=== PATIENT | female | born 1985 | race Caucasian/White ===

== ENCOUNTER 2025-04-02 13:00 | Outpatient (AMB) | payer OTHER, SELFPAY ==
--- NOTE | 2025-04-02 13:02 | MHC.PC.OV ---
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 Allergies No Known Allergies Allergy (Verified 04/02/25 13:25) Medication List - Last Reconciled 04/02/25 by Corie Mackay, TIE PULLER- escitalopram oxalate (Lexapro) 10 mg PO DAILY Tobacco use date assessed: 04/02/25 Dental Screening Dental Screen Date: 04/02/25 Did you have a dental visit in the last 12 months?: Yes Did you have a dental problem in the last 6 months where you did not have access to dental care?: No Was dental information given to patient?: Patient has dentist HPI HPI Comments History of Present Illness Details 39 y/o F with MICHAEL, MDD Social: 2 children, 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 - Reports bloating and constipation since starting Lexapro in September 2023. - Symptom description includes alternating abdominal distension resembling six months and relief by morning. - No similar symptoms on prior antidepressants or pre-Lexapro.(celexa/zoloft) - Not on control; menstruation began day prior. - Weight up by 15 pounds since starting Lexapro - happy w/ this. - takes at night as makes her tired during the day. GI sx are worse in the evening. - Mood is great on this med. Not in counseling. Denies SI/HI - No pelvic pain or pressure reported. - Symptoms of fatigue, possibly linked to low blood pressure. Family History - Father with hypertension and high cholesterol. - Mother with anxiety, depression, thyroid disorder, and Parkinson's disease. - Paternal grandfather with heart disease. - Paternal grandmother with COPD. - Maternal grandmother with lung cancer. - Maternal grandfather with unspecified blood cancer. - One brother with substance use and other with mental health disorder. 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 - Does not drink alcohol. - Has two children. - Not on any control. Health Maintenance - Pap smear last conducted three years ago, consistent with current health guidelines. - Tetanus vaccination updated following of the youngest child, approximately 4 years ago. - Not currently in counseling due to self-perceived effectiveness of current medication regimen. - Periodic health screenings planned via upcoming lab tests to assess blood counts, kidney and liver function, and diabetes screening. Review of Systems - Gastrointestinal: Reports bloating and constipation. Denies abdominal pain or food-related symptom exacerbation. - Endocrine: Denies recent changes except weight gain. - Neurological/Psychiatric: Reports mood stabilization but medication-related fatigue. - Genitourinary: Denies pelvic pain; reports regular menstrual cycle. - Respiratory: Denies symptoms. - Cardiovascular: Denies symptoms. Physical Exam General: Well developed, well nourished, in no acute distress. Appears stated age. Head: Normocephalic, atraumatic. Eyes: Pupils are equal, round and reactive to light and accommodation. Conjunctivae are clear. Vision grossly normal. Ears: TMs clear AU, EACS WNL. A little congestion noted R TM, likely due to allergies. Nose: Patent, without discharge. Some clear drainage noted, likely due to allergies. Neck: Supple, no adenopathy or thyromegaly. No pain on palpation. Breast: Edu on SBE Lungs: Clear to auscultation bilaterally. No rales, rhonchi or wheeze noted. Good air flow in all mclean. Heart: Regular rate and rhythm. No murmurs, click, rubs or gallops are noted. Abdomen: Bowel sounds present in all quadrants. The abdomen is soft, nontender, with no masses or organomegaly noted. No hernias are noted. : Deferred. Reviewed recommendations for routine FREELANCE PATTERNMAKER. Pulses: Peripheral pulses are equal and palpable bilaterally. Extremities: No clubbing, cyanosis nor edema is noted. Neurologic: Gait and station normal. Cranial Nerves 2-12 intact. Motor strength grossly symmetrical and intact. No sensory loss. Balance normal. Skin: No rashes, ulcers, or lesions noted. Turgor is good. Skin color is good. Hair and nails are without abnormalities. Psych: Normal eye contact, affect and mood appropriate, and normal interactions. Patient is alert and appropriate to context. Results Pending Discussion Notes I discussed with the patient that Lexapro could be contributing to her gastrointestinal symptoms, considering the timeline of onset. However, other causes must be ruled out with [facility] [place] and comprehensive lab work. The implications of potential Lexapro side effects were reviewed, as well as the possibility of altering antidepressant treatment if tests are clear. [employer] genetic testing for medication response optimization was introduced as a potential future step. We will reconvene for follow-up in 8 to 12 weeks, reviewing test results and considering safe antidepressant alternatives if Lexapro is the cause. Assessment and Plan 1. Gastrointestinal symptoms potentially due to Lexapro - Ultrasound and full lab workup ordered. - Review Lexapro's effects post-test results. 2. Anxiety and Depression - Continue Lexapro. - Re-evaluate post-test findings. 3. Fatigue - Monitor with labs. - Evaluate treatment options if anemia is present. Patient Instructions - Await call for ultrasound appointment. - Complete lab tests today. - Continue taking Lexapro; do not miss doses. - Monitor symptoms; report any changes. - Return for follow-up as scheduled - about 8 weeks. - Contact office if symptoms worsen. Consent Patient was informed and verbally consented to the use of an ambient scribe for clinic note documentation during this visit. An additional 30 minutes was spent addressing the problem(s) noted at todays visit. This includes time spent before the visit reviewing the chart, time spent during the visit, and time spent after the visit on documentation [facility] Medical History (Updated 04/02/25 @ 16:57 by Corie Mackay, [facility]) Anxiety and depression Scoliosis Surgical History (Updated 04/02/25 @ 13:11 by Connie Ramos MA) No pertinent past surgical history Family History (Updated 04/02/25 @ 13:15 by Connie Ramos MA) Paternal Grandmother COPD (chronic obstructive pulmonary disease) Father HTN (hypertension) High cholesterol Mother Thyroid disorder Mental health disorder Paternal Grandfather Cardiovascular disease Maternal Grandmother Lung cancer Maternal Grandfather Cancer Brother Mental health disorder Social History (Updated 04/02/25 @ 13:11 by Connie Ramos MA) Household Members: Spouse and Children Both parents involved: No Caregiver staying overnight: No Housing: House Are you a primary childcare director to a significant other at home: Yes Do you presently have visiting nurse or other home services: No 75 years or older and lives alone: No Alcohol intake: current Alcohol intake frequency: a few times a month Patient Tobacco Use Status: Never used Tobacco e-Cigarette/Vaping Use: Never Used Second Hand Smoke Exposure: No Current occupational status: employed 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 1. Little interest or pleasure in doing things: not at all 2. Feeling down, depressed, or hopeless: not at all 3. Trouble falling or staying asleep, or sleeping too much: not at all 4. Feeling tired or having little energy: not at all 5. Poor appetite or overeating: not at all 6. Feeling bad about yourself - or that you are a failure or have let yourself or your family down: not at all 7. Trouble concentrating on things, such as reading the newspaper or watching television: more than half the days 8. Moving or speaking so slowly that other people could have noticed. Or the opposite - being so fidgety or restless that you have been moving around a lot more than usual: not at all 9. Thoughts that you would be better off or of hurting yourself in some way: not at all Total score: 2 Depression Screening Interpretation: Negative Depression Screening Done: Yes 08206 - PHQ-9 Billing: Yes Source: Developed by Drs. Filipe Wray, Stephanie Saavedra, Manas Coley and colleagues, with an educational karl from [employer]. Thrive Questionnaire Date Thrive assessed: 04/02/25 I am a: Patient What is your living situation today?: I have a steady place to live Within the past 12 months, did the food you bought not last and you didn't have the money to get more?: Never true Within the past 12 months, did you worry whether your food would run out before you got money to buy more?: Never true Do you have trouble paying for medicines?: No Do you have trouble getting transportation to medical appointments?: No Do you have trouble paying your heating and electricity bill?: No Do you have trouble taking care of your child, family member or friend?: No Do you have trouble with day-to-day activities such as bathing, preparing meals, shopping, managing finances, etc.?: No Are you currently unemployed and looking for a job?: No Are you interested in more education?: No Please select the resources that you would like help with: None Currently or been in a relationship where the following occur: No concerns reported THRIVE Score: 0 AUDIT C Alcohol Use Questionnaire (AUDIT-C) 1. How often do you have a drink containing alcohol?: Monthly or less 2. How many drinks containing alcohol do you have on a typical day when you are drinking?: 1 or 2 3. How often do you have six or more drinks on one occasion?: Never Total Score: 1 Score Reviewed/Action Taken: Yes MICHAEL-7 AMB Questionnaire MICHAEL-7 Date MICHAEL - 7 assessed: 04/02/25 Feeling nervous, anxious, or on edge: 0 = Not at all Not being able to stop or control worryin = Not at all Worrying too much about different things: 0 = Not at all Trouble relaxin = Not at all Being so restless that it is hard to sit still: 0 = Not at all Becoming easily annoyed or irritable: 0 = Not at all Feeling afraid as if something awful might happen: 0 = Not at all Total MICHAEL-7 score (0-4 normal; 5-9 mild; 10-14 moderate; 15-21 severe): 0 Source: Developed by Drs. Filipe Wray, Stephanie Saavedra, Manas Coley and colleagues, with an educational karl from [employer]. MICHAEL-7 Assessment Billing MICHAEL-7 Assessment Tool: MICHAEL-7 Assessment 13528 Physical exam (Primary Care) Vital Signs: Last Vital Signs Temp 97.6 F 04/02/25 13:06 Pulse 60 04/02/25 13:06 Resp 12 04/02/25 13:06 BP 97/66 04/02/25 13:06 Pulse Ox 99 04/02/25 13:06 Oxygen Delivery Method Room Air 04/02/25 13:06 BMI result Body Mass Index 22.7 Tobacco/Smoking Status: Tobacco use Status Tobacco use date assessed 04/02/25 04/02/25 13:15 Patient Tobacco Use Status Never used Tobacco 04/02/25 13:15 e-Cigarette/Vaping Use Never Used 04/02/25 13:15 PHQ-9: PHQ-9 Score PHQ-9: Total score 2 04/02/25 13:25 Depression Screening Interpretation: Negative Thrive Assessment: Date of Thrive Assessment Date Thrive assessed 04/02/25 04/02/25 13:15 Currently or been in a relationship where the following occur: No concerns reported Coding Level of Care Code New Pt Level 3 (27222) New Pt Prev Care 18-39yr(66723 Diagnoses Encounter to establish care Z76.89 MICHAEL (generalized anxiety disorder) F41.1 Mild episode of recurrent major depressive disorder F33.0 Major depression episode severity: mild Abdominal bloating R14.0 Chronic fatigue R53.82 Fatigue type: chronic, unspecified Encounter for general adult medical examination with abnormal findings Z00.01 Additional Codes MICHAEL-7 Assessment Billing - MICHAEL-7 Assessment Tool: MICHAEL-7 Assessment 83748 ([id number]) PHQ-9 - 55156 - PHQ-9 Billing: Yes ([id number]) Assessment & Plan Assessment & Plan (1) Encounter to establish care: Code(s): Z76.89 - Persons encountering health services in other specified circumstances (2) MICHAEL (generalized anxiety disorder): Code(s): F41.1 - Generalized anxiety disorder Category: Medical (3) MDD (major depressive disorder), recurrent episode: Code(s): F33.9 - Major depressive disorder, recurrent, unspecified Category: Medical Qualifiers: Major depression episode severity: mild Qualified Code(s): F33.0 - Major depressive disorder, recurrent, mild (4) Abdominal bloating: Code(s): R14.0 - Abdominal distension (gaseous) Category: Medical (5) Fatigue: Code(s): R53.83 - Other fatigue Category: Medical Qualifiers: Fatigue type: chronic, unspecified Qualified Code(s): R53.82 - Chronic fatigue, unspecified (6) Encounter for general adult medical examination with abnormal findings: Onset Date: ~04/02/25 Code(s): Z00.01 - Encounter for general adult medical examination with abnormal findings Category: Medical Plan . Orders: Orders Complete Blood Count no Diff Today R14.0 - Abdominal distension (gaseous) TSH reflex Free T4 Today R14.0 - Abdominal distension (gaseous) US pelvic and transvaginal Today R14.0 - Abdominal distension (gaseous) Comprehensive Met. Panel Today R14.0 - Abdominal distension (gaseous) Ferritin Today R14.0 - Abdominal distension (gaseous) Hemoglobin A1c Today R14.0 - Abdominal distension (gaseous) IRON PROFILE Today R14.0 - Abdominal distension (gaseous) Lipid Panel Today R14.0 - Abdominal distension (gaseous) Microalbumin, Random (w Creat) Today R14.0 - Abdominal distension (gaseous) Vitamin B12 and Folate Today R14.0 - Abdominal distension (gaseous) Vitamin D 25-OH Total Today R14.0 - Abdominal distension (gaseous) UA CC w/rflx Micro + Cult Today R14.0 - Abdominal distension (gaseous) Medications: New escitalopram oxalate (Lexapro) 10 mg PO DAILY 90 tabs 0RF Patient Instructions: Walk-In Care (Urgent Care): We Make it Easy Walk-in for urgent medical issues such as: ? Seasonal Allergies ? Insect Bites ? Cough ? Diarrhea ? Acute Asthma Attacks ? Back, Knee or Joint Pain ? Ear Infection ? Fever without a Rash ? Headaches ? Nausea ? [place] Eye, Rash or Skin Irritation ? Sore Throat ? Sports Physicals ? Vomiting Most insurances are accepted. Patients do not need to be part of the [facility] to seek care at the walk-in clinic. Locations [facility] , [place] [address] ? [phone] [facility] Walk-In Care in [place] provides services to ages 18 and over. Open Sunday-Sunday: 8 a.m. to 5 p.m. and Sunday: 9 a.m. to 3 p.m.* *Hours may vary due to staffing availability. To confirm Walk-In Care hours in [place], please call [phone]. [address] [place] [address] ? [phone] [facility] Walk-In Care in [place] provides services to ages 12 and over. Open Sunday-Sunday: 8 a.m. to 5 p.m. Hours may vary due to staffing availability. To confirm Walk-In Care hours in [place], please call [phone]. LABORATORY SERVICES: [facility] Lab ? Primary Location [address] [facility] Sunday through Sunday 6:00 AM ? 5:00 PM Sunday 7:00 AM ? 11:00 AM* [phone] The [facility] Lab is centrally located near the front entrance of the [facility] for easy outpatient access. Convenient parking is provided for outpatients. *Hours may vary due to staffing availability. To confirm Laboratory hours for any location, please call [phone]. Offsite Location For your convenience, we offer offsite laboratory draw stations at the following locations: [address] [place] [address] ? [address], [address] Sunday through Sunday 7:30 AM ? 1:00 PM* [phone] *Hours may vary due to staffing availability. To confirm Laboratory hours for any location, please call [phone]. [place] ? [address] Sunday through Sunday 6:00 AM ? 3:30 PM* Sunday 6:30 AM ? 3 PM* [phone] *Hours may vary due to staffing availability. To confirm Laboratory hours for any location, please call [phone] [place] [address] Sunday through Sunday 7:30 AM ? 4:00 PM* [phone] *Hours may vary due to staffing availability. To confirm Laboratory hours for any location, please call [phone] [place] [address] Sunday through 9:00 AM ? 4:00 PM* *Hours may vary due to staffing availability. To confirm Laboratory hours for any location, please call [phone]. Appointments are not necessary. Walk-ins are welcome. Like all the departments throughout the [facility], our Lab undergoes frequent reviews to ensure the quality and accuracy of test results, and our staff takes special pride in its status as a nationally accredited facility. Patient Portal: ONE PATIENT. ONE RECORD. BETTER CARE. [facility] has a fully integrated, cutting-edge mobile electronic health information system that has revolutionized the way we care for our patients and manage our organization. This system improves communication and coordination enabling us to provide safe, higher-quality care, and an overall positive experience for staff and patients. Our first priority, as always, is to deliver the highest quality care possible. The system is running in the background supporting that priority. This portal is for all [facility] services and practices. If you are experiencing any technical difficulties with enrolling or logging into the Patient Portal please complete the [facility] Patient Portal Technical Support Form. [facility] now offers a new secure on-line interactive tool for patients to review their health information ? ?Patient Portal. This interactive web portal will enable patients and their families to take an active role in their care by providing easy, secure access to their health information via the internet. The Patient Portal provides patients with instant access to their health information, including laboratory results, medications, allergies, demographic information, visit history, and more. In addition to managing their own care, parents and health care proxies with authorized consent will appreciate the ability to access the records of those individuals for whom they provide care. Please note: if you wish to gain access (Proxy) to another patient?s portal, you will be required to come to the Medical Records Department in person at [facility]. Both the patient giving proxy access and the proxy will need to provide photo identification and complete the appropriate authorization. The Patient Portal also allows track their appointments online. The [facility] Patient Portal also saves patients time by allowing them to submit updates to their demographic and contact information prior to their visits. Portal email notifications will also alert patients to any new activity on their portal, such as test results and new appointments. In order to initially enroll in the [facility] Patient Portal, you will need to enter some required information including the following: your [facility] Medical Record number your personal home email address name date of Please note: In order to enroll in the [facility] Patient Portal, we need to have your email address on file in your electronic medical record. ?The email address needs to be specific for one person (yourself) in order for your Portal enrollment to be successful. ?You can update your email address in person with our Registration staff when you are registering for a hospital visit. ?Otherwise, you will need to come to the Health Information Management (Medical Records) Department at [facility]. ?We are open from Sunday ? Sunday from 7:30 a.m. ? 4:30 p.m. ?You will be required to present a photo id. Once you have successfully enrolled in the Patient Portal, you will receive a one-time user id and password for the Portal, sent to your email address. ?This will allow you to log into the Patient Portal within 99 hrs and reset your own logon id and password, and define personal security questions. ?Once your permanent login and password have been set, you can log into the [facility] Patient Portal at any time via the blue button above or from the Portal Logon button on any page of the [facility] website. [facility] encourage all of our patients to enroll in Patient Portal as it presents a valuable opportunity for patients and their families to actively participate in their care and stay healthy Welcome to [facility]. ?We look forward to working with you. Health screenings for women You should visit your health care provider from time to time, even if you are healthy. The purpose of these visits is to: Screen for medical issues Assess your risk for future medical problems Encourage a healthy lifestyle Update vaccinations and other preventive care services Help you get to know your provider in case of an illness Information Even if you feel fine, you should still see your provider for regular checkups. These visits can help you avoid problems in the future. For example, the only way to find out if you have high blood pressure is to have it checked regularly. High blood sugar and high cholesterol levels also may not have any symptoms in the early stages. A simple blood test can check for these conditions. There are specific times when you should see your provider or receive specific health screenings. The [place] Preventive Services Task Force publishes a list of recommended screenings. Below are screening guidelines for women ages 18 to 39. BLOOD PRESSURE SCREENING Your blood pressure should be checked at least once every 3 to 5 years if: Your blood pressure is in the normal range (top number less than 120 mm Hg and bottom number less than 80 mm Hg) You don't have risk factors for high blood pressure Ask your provider if you need your blood pressure checked more often if: The top number is 120 to 129 mm Hg or the bottom number is 70 to 79 mm Hg You have diabetes, heart disease, kidney problems, are overweight, or have certain other health conditions You have a first-degree relative with high blood pressure You are Black You had high blood pressure during a If the top number is 130 mm Hg or greater or the bottom number is 80 mm Hg or greater, this is considered stage 1 hypertension. Schedule an appointment with your provider to learn how you can reduce your blood pressure. Watch for blood pressure screenings in your area. Ask your provider if you can stop in to have your blood pressure checked. BREAST CANCER SCREENING Experts do not agree about the benefits of breast self-exams in finding breast cancer or saving lives. Talk to your provider about what is best for you. A screening mammogram is not recommended for most women under age 40. Your provider may discuss and recommend mammograms, MRI scans, or ultrasounds if you have an increased risk for breast cancer, such as: A mother or sister who had breast cancer at a young age (most often starting screening earlier than the age the close relative was diagnosed) You carry a high-risk genetic marker CERVICAL CANCER SCREENING Cervical cancer screening should start at age 21 years unless your provider advises otherwise. After the first test: Women ages 21 through 29 should have a Pap test every 3 years. Exoprts do not agree on whether HPV testing is recommended for this age group. Women ages 30 through 65 should be screened with either a Pap test every 3 years or the HPV test every 5 years or both tests every 5 years (called cotesting ). Women who have been treated for precancer (cervical dysplasia) should continue to have Pap tests for 20 years after treatment or until age 65, whichever is longer. If you have had your uterus and cervix removed (total hysterectomy), and you have not been diagnosed with cervical cancer or precancer (high grade cervical neoplasia), you do not need cervical cancer screening. CHOLESTEROL SCREENING Cholesterol screening should begin at: Age 45 for women with no known risk factors for coronary heart disease Age 20 for women with known risk factors for coronary heart disease Repeat cholesterol screening should take place: Every 5 years for women with normal cholesterol levels More often if changes occur in lifestyle (including weight gain and diet) More often if you have diabetes, heart disease, kidney problems, or certain other conditions DIABETES SCREENING You should be screened for diabetes starting at age 35 and then repeated every 3 years if you have no risk factors for diabetes. Screening may need to start earlier and be repeated more often if you have other risk factors for diabetes, such as: You have a first degree relative with diabetes. You are overweight or have obesity. You have high blood pressure, prediabetes, or a history of heart disease. Screening for diabetes should be done if you are planning to become and you are overweight and have other risk factors such as high blood pressure. DENTAL EXAM Go to the dentist once or twice every year for an exam and cleaning. Your dentist will evaluate if you need more frequent visits. EYE EXAM Have an eye exam every 5 to 10 years before age 40. If you have vision problems, have an eye exam every 2 years or more often if recommended by your provider. You should have an eye exam that includes an examination of your retina (back of your eye) at least every year if you have diabetes. IMMUNIZATIONS Commonly needed vaccines include: Flu shot: get one every year. COVID-19 vaccine: ask your provider what is best for you. Tetanus-diphtheria and acellular pertussis (Tdap) vaccine: have one at or after age 19 as one of your tetanus-diphtheria vaccines if you did not receive it as an adolescent. Tetanus-diphtheria: have a booster (or Tdap) every 10 years. Varicella vaccine: receive 2 doses if you never had chickenpox or the varicella vaccine. Hepatitis B vaccine: receive 2, 3, or 4 doses, depending on your exact circumstances. Measles, mumps, and rubella (MMR) vaccine: receive 1 to 2 doses if you are not already immune to MMR. Your provider can tell you if you are immune. Ask your provider about the human papillomavirus (HPV) vaccine if: You have not received the HPV vaccine in the past You have not completed the full vaccine series (you should catch up on this shot) Ask your provider if you should receive other immunizations if you have certain health problems that increase your risk for some diseases such as pneumonia. INFECTIOUS DISEASE SCREENING Women who are sexually active should be screened for chlamydia and gonorrhea up until age 25. Women 25 years and older should be screened for chlamydia and gonorrhea if at high risk. Screening for hepatitis C: All adults ages 18 to 79 should get a one-time test for hepatitis C. people should be screened at every . Screening for human immunodeficiency virus (HIV): All people ages 15 to 65 should get a one-time test for HIV. Depending on your lifestyle and medical history, you may also need to be screened for infections such as syphilis and HIV, as well as other infections. PHYSICAL EXAM All adults should visit their provider from time to time, even if they are healthy. The purpose of these visits is to: Screen for disease Assess your risk of future medical problems Encourage a healthy lifestyle Update your vaccinations and other preventive care services Maintain a relationship with a provider in case of an illness Your height, weight, and BMI should be checked at every exam. During your exam, your provider may ask you about: Depression and anxiety Diet and exercise Alcohol and tobacco use Safety issues, such as using seat belts, smoke detectors, and intimate partner violence Your medicines and risk for interactions SKIN SELF-EXAM Your provider may check your skin for signs of skin cancer, especially if you're at high risk, such as if you: Have had skin cancer before Have close relatives with skin cancer Have a weakened immune system OTHER SCREENING Talk with your provider about colon cancer screening if you have a strong family history of colon cancer or polyps, or if you have had inflammatory bowel disease or polyps yourself. Routine bone density screening of women under 40 is not recommended.
[2025-04-02 13:06] VITALS: BP 97/66; PULSE 60; RESP 12; TEMP 36.4; O2SAT 99; BMI 22.7
--- OUTSIDE RECORDS SUMMARY | 2025-04-02 15:06 | XMS_ITS | Clinical Summary ---
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 Active cephalexin (KEFLEX) 250 MG/5ML suspensionIndic ations:Acute cystitis with hematuria Take 10 mL twice daily x 7 days 140 mL 11/25/2024 Active Active Problems Problem Noted Date Diagnosed Date Social anxiety disorder 02/25/2014 Idiopathic scoliosis and kyphoscoliosis 06/21/20 09 Immunizations Immunization Administration Dates Next Due DTP 11/29/1992, 1,09/21/1988,1987,1987 DTaP / HiB / IPV 07/22/1991 HPV Quadrivalent 06/21/2009 Hep B, Adolescent or Pediatric 01/19/2000,1998,08/11/1999 Influenza Inactivated/Split Preservative Free IM 10/19/2020,07/25/2016 Influenza, Quadrivalent (FLU ARIX, AFLURIA, FLULAVAL, FLUZONE) Preservative Free IM 09/17/2022,09/17/2021 MMR 09/28/1997,12/25/1988 OPV 11/29/1992, 1,09/21/1988,1987,1987 Tdap 06/21/2009 Social History Tobacco Use Types Packs/Day Years Used Date Smoking Tobacco: Never Smokeless Tobacco: Never Tobacco Cessation:Counseling Given: Not Answered Alcohol Use Standard Drinks/Week Comments Not Currently 0 (1 standard drink = 0.6 oz pur e alcohol) Comments Unknown Sex and Gender Information Value Date Recorded Sex Assigned at Not on file Legal Sex Female 6:36 PM EST Gender Identity Not on file Sexual Orientation Not on file Last Filed Vital Signs Vital Sign Reading Time Taken Comments Blood Pressure 88/58 11/25/2024 12:53 PM EST Pulse 56 11/25/2024 12:53 PM EST Temperature 36.8 ??C (98.2 ??F) 11/25/2024 12:[address] Respiratory Rate 16 11/25/2024 12:53 PM EST Oxygen Saturation 98% 11/25/2024 12:53 PM EST Inhaled Oxygen Concentration - - Weight 55.3 kg (122 lb) 11/25/2024 12:53 PM EST Height 157.5 cm (5' 2 ) 11/25/2024 12:53 PM EST Body Mass Index 22.31 11/25/2024 12:53 PM EST Plan of Treatment Health Maintenance Due Date Last Done Comments Hepatitis C Virus Screening 1987 HIV Screening 2000 Pap Smear (Ages 21-65) 2008 HPV Vaccines (2 - 3-dose series) 07/19/2009 06/21/2009 DTaP/Tdap/Td Vaccines (7 - Td or Tdap) 06/21/2019 06/21/2009, 11/29/1992, 07/29/1991, Additional history exists COVID-19 Vaccine ( season) 2024 07/24/2021, 06/26/2021 Influenza Vaccine 05/22/2025 09/17/2022, , 10/19/2020, Additional history exists Hepatitis B Vaccines Completed 01/19/2000, 10/06/1999, 08/11/1999 Pneumococcal Vaccine: Pediatric (0-5 Years) and At-Risk Patients (6 to 49 Years) Aged Out No longer eligible based on patient's age to complete this topic Insurance [employer] 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
== END 2025-04-02 13:52 | disposition home or self-care (01) ==
LOC: HO.HMCFM 13:01
PROVIDERS: PCP Nurse Practitioner Family; Visit Provider Nurse Practitioner Family
DX: Z00.01 Encounter for general adult medical examination with abnormal findings (principal); F41.1 Generalized anxiety disorder; F33.0 Major depressive disorder, recurrent, mild; R14.0 Abdominal distension (gaseous); R53.82 Chronic fatigue, unspecified; Z76.89 Persons encountering health services in other specified circumstances

== ENCOUNTER → 2025-04-02 13:00 | Outpatient (BNVA) | payer OTHER, SELFPAY | PROVIDERS: PCP Nurse Practitioner Family; Visit Provider Nurse Practitioner Family ==

== ENCOUNTER 2025-04-02 13:43 | Outpatient (REF) | payer OTHER, SELFPAY ==
[2025-04-02 17:39] LABS: Hematocrit 35.7 % (37.0-47.0); Mean Corpuscular HGB Conc 33.6 g/dl (31.0-35.0); Mean Corpuscular Hemoglobin 31.5 pg (27.0-33.0); Mean Corpuscular Volume 93.7 fL (80.0-98.0); Mean Platelet Volume 11.4 fL (9.4-12.3); Platelet Count 220 X10*3/uL (160-400); Red Blood Count 3.81 X10*6/uL (4.20-5.50); Red Cell Distribution Width 11.7 % (11.0-16.0); White Blood Count 6.5 X10*3/uL (4.8-10.8)
[2025-04-02 17:42] LABS: Estimated Average Glucose 97 mg/dL; Total Hemoglobin (HGBA1C) 3120.8054 umol/L
[2025-04-02 17:45] LABS: Appearance Urine Clear; Color Urine Dark Yellow; Glucose Urine UA Negative (Negative); Leukocyte Esterase Urine Negative (Negative); Nitrite Urine Negative (Negative); Specific Gravity - Urine 1.025 (1.005-1.025); UMIC TRIGGER UACC YES; Urine Blood Small (1+) (Negative); Urine Ketones Trace mg/dL (Negative); Urine Protein Negative (Neg-Trace)
[2025-04-02 17:52] LABS: Alanine Aminotransferase 19 U/L (0-31); Albumin Level 4.3 g/dL (3.5-5.0); Alkaline Phosphatase 57 U/L (39-117); Anion Gap 10 (12-20); Aspartate Amino Transferase 22 U/L (5-31); Bilirubin Total 0.6 mg/dL (0.0-1.0); Blood Urea Nitrogen 8 mg/dL (9-16); Calcium 8.7 mg/dL (8.4-10.2); Carbon Dioxide 27 mmol/L (22-29); Chloride 108 mmol/L (96-108); Cholesterol 168 mg/dL (<200); Estimated Glomerular Filt Rate > 60; Glucose Random 82 mg/dL (60-115); HDL Cholesterol 54 mg/dL (>40); Iron 91 mcg/dL (30-160); LDL Cholesterol Calculated 97 mg/dL (<100); Percent Iron Saturation 30 % (15-50); Potassium 3.6 mmol/L (3.3-5.1); Sodium 141 mmol/L (135-145); Total Iron Binding Capacity 299 mcg/dL (228-428); Total Protein 6.8 g/dL (6.5-8.0); Triglycerides 87 mg/dL (<150); Unsaturated Iron Binding 208 ug/dL
[2025-04-02 18:04] LABS: Creatinine Urine 237.34 mg/dL; Microalbum/Creatinine Ratio Ur 4.6 ug/mg cr (<30)
[2025-04-02 18:13] LABS: Ferritin 41 ng/mL (10-122); TSH reflex Free T4 1.71 uIU/mL (0.32-4.0); Vitamin D 25-OH Total 36.9 ng/mL (>30)
[2025-04-02 18:21] LABS: Bacteria Urine None Seen (None Seen); Hyaline Casts Urine 0-2 /LPF (0-2); WBC Urine 0-5 /HPF (0-5)
[2025-04-02 18:23] LABS: Folate 12.2 ng/mL (> or = 4.0); Vitamin B12 596 pg/mL (200-900)
== END 2025-04-02 13:44 | disposition home or self-care (01) ==
LOC: HO.WFDLDS 13:43
PROVIDERS: Visit Provider Nurse Practitioner Family
DX: Z00.01 Encounter for general adult medical examination with abnormal findings (principal); Z76.89 Persons encountering health services in other specified circumstances; F41.1 Generalized anxiety disorder; F33.0 Major depressive disorder, recurrent, mild; R14.0 Abdominal distension (gaseous); R53.82 Chronic fatigue, unspecified; Z13.1 Encounter for screening for diabetes mellitus; Z13.31 Encounter for screening for depression
CPT/HCPCS: 36415; 80053; 80061; 81001; 82043; 82306; 82570; 82607; 82728; 82746; 83036; 83540; 84443; 85027; 96127

== ENCOUNTER 2025-05-08 15:09 | Outpatient (REF) | payer OTHER, SELFPAY ==
--- NOTE | ~2025-05-08 | US_ITS ---
EXAMINATION: US PELVIS TRANSABDOMINAL AND TRANSVAGINAL HISTORY: R14.0 - Abdominal distension (gaseous) COMPARISON: There are no prior studies available for comparison. TECHNIQUE: Transabdominal and endovaginal real-time 2D hawkins-scale ultrasound was performed. FINDINGS: Uterus: The uterus is normal in size, measuring 7.1 x 3.6 x 4.6 cm. Myometrium has a normal echotexture. No fibroids are identified. Endometrium: The endometrial stripe measures 7 mm in thickness. Right ovary: The right ovary measures 2.8 x 2.7 x 2.3 cm. The right ovary is normal in size and echotexture. There are follicles measuring up to 1.7 cm in size. Left ovary: The left ovary measures 2.6 x 1.9 x 1.3 cm. The left ovary is normal in size and echotexture. There is a 1.6 x 0.9 x 1.4 cm paraovarian cyst. Pelvic fluid: none. US/US pelvic and transvaginal IMPRESSION: 1.6 x 0.9 x 1.4 cm left paraovarian cyst. Otherwise unremarkable pelvic ultrasound. Electronically signed by: Filipe Coronel MD 05/08/2025 03:56 PM EDT
--- OUTSIDE RECORDS SUMMARY | 2025-05-08 15:12 | XMS_ITS ---
Author Name [facility] Organization Unknown History of Medication Use Medication Directions Dispensed Refills Start Date End Date Stat us cephalexin (KEFLEX) 250 MG/5ML suspension Take 10 mL twice daily x 7 days 11/25/2024 active cephalexin (KEFLEX) 250 MG/5ML suspension Take 10 mL (500 mg total) by mouth 2 (two) times a day. 12/27/2022 01/04/2023 active escitalopram (LEXAPRO) 10 MG tablet Take 10 mg by mouth daily. active Problems Problem Status Onset Date Problem Type Date of Resolution Source Urinary tract infection symptoms active EncounterDiagnosisAct [facility] Idiopathic scoliosis and kyphoscoliosis active 2009-06-21 ProblemAct [facility] Social anxiety disorder active 2014-02-25 ProblemAct [facility] Acute cystitis with hematuria active EncounterDiagnosisAct [facility] Immunizations Vaccine Date Source Lot Number Status Influenza, Quadrivalent (FLU ARIX, AFLURIA, FLULAVAL, FLUZONE) Preservative Free IM 09/17/2022 [facility] [id number] completed Influenza, Quadrivalent (FLU ARIX, AFLURIA, FLULAVAL, FLUZONE) Preservative Free IM 09/17/2021 [facility] [id number] completed HPV Quadrivalent 06/21/2009 [facility] [id number] complete d Tdap 06/21/2009 [facility] [id number] completed Hep B, Adolescent or Pediatric 01/19/2000 [facility] completed Hep B, Adolescent or Pediatric 10/06/1999 [facility] completed Hep B, Adolescent or Pediatric 08/11/1999 [facility] completed MMR 09/28/1997 [facility] completed DTP 11/29/1992 [facility] completed OPV 11/29/1992 [facility] completed DTP 07/29/1991 [facility] completed OPV 07/29/1991 [facility] completed DTaP / HiB / IPV 07/22/1991 [facility] complete d MMR 12/25/1988 [facility] completed DTP 09/21/1988 [facility] completed OPV 09/21/1988 [facility] completed DTP 03/13/1988 [facility] completed OPV 03/13/1988 [facility] completed DTP 1987 [facility] completed OPV 1987 [facility] completed Encounters Encounter Type Encounter Reason Primary Diagnosis Location Date Ambulatory Acute cystitis with hematuria Acute cystitis with hematuria [facility] 11/25/2024 Ambulatory Acute cystitis w ith hematuria [facility] 12/27/2022 Care Team Organization Name Specialty Phone Email Start Date End Da te [facility] NO PCP Primary Care 11/25/2024 [facility] 12/27/2022 01/07/2025 [facility] 12/27/2022 12/27/2022
--- OUTSIDE RECORDS SUMMARY | 2025-05-08 15:12 | XMS_ITS | Clinical Summary ---
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
== END 2025-05-08 15:10 | disposition home or self-care (01) ==
LOC: HO.US 15:09
PROVIDERS: PCP Nurse Practitioner Family; Visit Provider Nurse Practitioner Family
DX: R14.0 Abdominal distension (gaseous) (principal)
CPT/HCPCS: 76830; 76856

== ENCOUNTER → 2025-05-08 15:10 | Outpatient (BNV) | payer OTHER, SELFPAY | PROVIDERS: PCP Nurse Practitioner Family; Visit Provider Radiology Diagnostic Radiology | DX: N83.292 Other ovarian cyst, left side (principal) | CPT/HCPCS: 76830; 76856 ==

== ENCOUNTER 2025-06-03 14:54 | Outpatient (AMB) | payer OTHER, SELFPAY ==
--- NOTE | 2025-06-03 14:59 | MHC.PC.OV ---
Vital Signs 06/03/25 15:01 Height 5 ft 2 in Weight 126 lb 6 oz BMI 23.1 BP 122/67 Blood Pressure Location Lt brachial Position Sitting Respiration 12 Pulse 59 Pulse Source Pulse Oximeter Temp 97.5 F Temp Source Oral Pulse Oximetry (%) 97 Oxygen Delivery Method Room Air Intake Visit Reasons: fu US and lab results/GI upset on lexapro Intake Note: Follow up to review ultrasound and review labs. Algorithm Developer Required: No Allergies No Known Allergies Allergy (Verified 06/03/25 14:59) Medication List - Last Reconciled 06/03/25 by Corie Mackay, POLE SHAVER HELPER- escitalopram oxalate (Lexapro) 10 mg PO DAILY multivitamin with iron 1 tab PO DAILY Tobacco use date assessed: 06/03/25 Dental Screening Dental Screen Date: 06/03/25 Did you have a dental visit in the last 12 months?: Yes Did you have a dental problem in the last 6 months where you did not have access to dental care?: No Was dental information given to patient?: Patient has dentist HPI HPI Comments History of Present Illness Details 39 y/o F with MICHAEL, MDD, fhx chrons (mom), Constipation, Mild anemia 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 She has been taking daily along with a probiotic. She continues with the same GI complaints with mild worsening of the constipation since starting the an iron supplement. Otherwise denies any new symptoms in regards to her GI health. Her labs are reassuring in her ultrasound showed an ovarian cyst which is chronic for her. In regards to her mood she admits that she is feeling overwhelmed with the decreased motivation overall feeling fatigued. She has not made it to the pharmacy to pick and shovel man her Lexapro and has been taking it only a few times per week to ensure that she does not run out. She just reports a decreased motivation to go to the pharmacy and pick it up. She denies any SI or HI. She does not use any stimulants such as caffeine or energy drinks to help her focus. Having a hard time focusing at home and at work. Review of Systems - Gastrointestinal: Reports abdominal bloating, reports constipation, reports reduced bowel movement frequency. - Hematologic: Reports starting a multivitamin with iron for mild anemia. - Psychological: Reports anxiety well managed on Lexapro, reports low motivation and struggles with focus and fatigue. - Family History: Reports a family history of Crohn?s disease. - General: Denies nausea or sickness from multivitamin with iron. Physical Exam General: Well developed, well nourished, in no acute distress. Appears stated age. Head: Normocephalic, atraumatic. Eyes: Pupils are equal, round and reactive to light and accommodation. Conjunctivae are clear. Vision grossly normal. Lungs: Clear to auscultation bilaterally. No rales, rhonchi or wheeze noted. Good air flow in all mclean. Heart: Regular rate and rhythm. No murmurs, click, rubs or gallops are noted. Abdomen: Bowel sounds present in all quadrants. The abdomen is soft, nontender, with no masses or organomegaly noted. No hernias are noted Musculoskeletal: Joints are nontender, without swelling, redness, or effusions. Pulses: Peripheral pulses are equal and palpable bilaterally. Extremities: No clubbing, cyanosis nor edema is noted. Psych: Mood and affect appropriate. Patient reports feeling overwhelmed and struggling with fatigue, focus, and motivation. No depression noted. Diagnostic results: See below. Discussion Notes I discussed with the patient the management plan for her abdominal bloating and constipation. I suggested [id number] MiraLax and Benefiber to enhance regular bowel movements and improve gut health, explaining their mechanisms. I also explored the role of her family history of Crohn's disease and suggested considering a GI referral for further evaluation, which she preferred to defer. For her Generalized Anxiety Disorder, I discussed the refill of Lexapro and introduced the consideration of Wellbutrin to aid focus and motivation, noting its interaction profile and possible constipative effect. We discussed maintaining the multivitamin with iron crucial for anemia despite its constipative effect. We also planned for a follow-up in eight weeks via phone to assess the new regimen's efficacy. Patient was given time to ask questions. All questions were answered to their satisfaction. Assessment and Plan 1. Generalized Anxiety Disorder - Continue Lexapro 10 mg; start Wellbutrin 150mg Qam - Monitor response in eight weeks by phone. 2. Constipation - Advise MiraLax and Benefiber use. - Maintain iron supplements. 3. Iron Deficiency Anemia - Continue multivitamin with iron. 4. Gastrointestinal Bloating - Avoid carbonated drinks. - GI consult deferred. 5. Ovarian Cyst - Observation recommended. Patient Instructions - Take MiraLax at night and Benefiber in the morning to ease constipation. - Fill and take Lexapro daily at the prescribed dose. - Use Wellbutrin as discussed to help focus and motivation. - Continue multivitamin with iron. - Avoid carbonated beverages to reduce bloating. - Call us if symptoms worsen or if you have any questions. - telehealth fu 8 weeks sooner as needed Consent Patient was informed and verbally consented to the use of an ambient scribe for clinic note documentation during this visit. Total time spent caring for the patient today was 30 minutes. This includes time spent before the visit reviewing the chart, time spent during the visit, and time spent after the visit on documentation, reviewing laboratory results, diagnostic imaging, medications, performing a medically necessary evaluation, counseling on diagnoses, care coordination, ordering appropriate tests, ordering appropriate medications, review of tests performed by other providers, reporting test results with the patient, communication with other healthcare providers. [facility] Medical History (Updated 06/03/25 @ 15:39 by Corie Mackay [facility]) Anxiety and depression Scoliosis Surgical History (Updated 04/02/25 @ 13:11 by Connie Ramos MA) No pertinent past surgical history Family History (Updated 04/02/25 @ 13:15 by Connie Ramos MA) Paternal Grandmother COPD (chronic obstructive pulmonary disease) Father HTN (hypertension) High cholesterol Mother Thyroid disorder Mental health disorder Paternal Grandfather Cardiovascular disease Maternal Grandmother Lung cancer Maternal Grandfather Cancer Brother Mental health disorder Social History (Updated 04/02/25 @ 13:11 by Connie Ramos MA) Household Members: Spouse and Children Both parents involved: No Caregiver staying overnight: No Housing: House Are you a primary certified social workers in health care to a significant other at home: Yes Do you presently have visiting nurse or other home services: No 75 years or older and lives alone: No Alcohol intake: current Alcohol intake frequency: a few times a month Patient Tobacco Use Status: Never used Tobacco e-Cigarette/Vaping Use: Never Used Second Hand Smoke Exposure: No Current occupational status: employed 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 Cognitive needs: No Hearing needs: No Vision needs: No Questionnaire Thrive Questionnaire Date Thrive assessed: 03/26/25 I am a: Patient What is your living situation today?: I have a steady place to live Within the past 12 months, did the food you bought not last and you didn't have the money to get more?: Never true Within the past 12 months, did you worry whether your food would run out before you got money to buy more?: Never true Do you have trouble paying for medicines?: No Do you have trouble getting transportation to medical appointments?: No Do you have trouble paying your heating and electricity bill?: No Do you have trouble taking care of your child, family member or friend?: No Do you have trouble with day-to-day activities such as bathing, preparing meals, shopping, managing finances, etc.?: No Are you currently unemployed and looking for a job?: No Are you interested in more education?: No Please select the resources that you would like help with: None Currently or been in a relationship where the following occur: No concerns reported THRIVE Score: 0 MICHAEL-7 AMB Questionnaire MICHAEL-7 Date MICHAEL - 7 assessed: 04/02/25 Source: Developed by Drs. Filipe Wray, Stephanie Saavedra, Manas Coley and colleagues, with an educational karl from [employer]. Physical exam (Primary Care) Vital Signs: Last Vital Signs Temp 97.5 F 06/03/25 15:01 Pulse 59 06/03/25 15:01 Resp 12 06/03/25 15:01 BP 122/67 06/03/25 15:01 Pulse Ox 97 06/03/25 15:01 Oxygen Delivery Method Room Air 06/03/25 15:01 BMI result Body Mass Index 23.1 Tobacco/Smoking Status: Tobacco use Status Tobacco use date assessed 06/03/25 06/03/25 15:03 Patient Tobacco Use Status Never used Tobacco 06/03/25 15:03 e-Cigarette/Vaping Use Never Used 06/03/25 15:03 Thrive Assessment: Date of Thrive Assessment Date Thrive assessed 03/26/25 06/03/25 15:03 Currently or been in a relationship where the following occur: No concerns reported Results Reviewed Results Reviewed: 04/2025 US: L There is a 1.6 x 0.9 x 1.4 cm paraovarian cyst. Laboratory 04/03/2025 Result Units Range Interpretation Provider Comments White Blood Count 6.5 X10*3/uL (4.8-10.8) Red Blood Count 3.81 X10*6/uL (4.20-5.50) Low Hemoglobin 12.0 g/dl (12.0-16.0) Hematocrit 35.7 % (37.0-47.0) Low Mean Corpuscular Volume 93.7 fL (80.0-98.0) Mean Corpuscular Hemoglobin 31.5 pg (27.0-33.0) Mean Corpuscular Hemoglobin Concent 33.6 g/dl (31.0-35.0) Red Cell Distribution Width 11.7 % (11.0-16.0) Platelet Count 220 X10*3/uL (160-400) Mean Platelet Volume 11.4 fL (9.4-12.3) Nucleated RBC Absolute Count (auto) 0.000 X10*3/uL (0.0-0.012) Nucleated Red Blood Cells % (auto) 0.0 /100WBC (0.0-0.2) Sodium Level 141 mmol/L (135-145) Potassium Level 3.6 mmol/L (3.3-5.1) Chloride Level 108 mmol/L (96-108) Carbon Dioxide Level 27 mmol/L (22-29) Anion Gap 10 (12-20) Low Blood Urea Nitrogen 8 mg/dL (9-16) Low Creatinine 0.73 mg/dL (0.5-1.4) Estimated Creatinine Clearance Calc Not Reportable Estimat Glomerular Filtration Rate > 60 Random Glucose 82 mg/dL (60-115) Estimated Average Glucose 97 mg/dL Hemoglobin A1c Percent 5.0 % (<6.0) Calcium Level 8.7 mg/dL (8.4-10.2) Iron Level 91 mcg/dL (30-160) Total Iron Binding Capacity 299 mcg/dL (228-428) Percent Iron Saturation 30 % (15-50) Unsaturated Iron Binding 208 ug/dL Ferritin 41 ng/mL (10-122) Total Bilirubin 0.6 mg/dL (0.0-1.0) Aspartate Amino Transf (AST/SGOT) 22 U/L (5-31) Alanine Aminotransferase (ALT/SGPT) 19 U/L (0-31) Alkaline Phosphatase 57 U/L (39-117) Total Protein 6.8 g/dL (6.5-8.0) Albumin 4.3 g/dL (3.5-5.0) Triglycerides Level 87 mg/dL (<150) Cholesterol Level 168 mg/dL (<200) LDL Cholesterol, Calculated 97 mg/dL (<100) HDL Cholesterol 54 mg/dL (>40) Vitamin B12 Level 596 pg/mL (200-900) 25-Hydroxy Vitamin D Total 36.9 ng/mL (>30) Folate 12.2 ng/mL (> or = 4.0) Thyroid Stimulating Hormone (TSH) 1.71 uIU/mL (0.32-4.0) Urine Color Dark Yellow Urine Appearance Clear Urine pH 6.0 (5.0-9.0) Urine Specific [place] 1.025 (1.005-1.025) Urine Protein Negative mg/dL (Neg-Trace) Urine Glucose (UA) Negative mg/dL (Negative) Urine Ketones Trace mg/dL (Negative) Urine Blood Small (1+) (Negative) High Urine Nitrite Negative (Negative) Urine Leukocyte Esterase Negative (Negative) Urine RBC 6-10 /HPF (0-2) High Urine WBC 0-5 /HPF (0-5) Urine Squamous Epithelial Cells 3-5 /HPF (0-2) Urine Bacteria None Seen (None Seen) Urine Hyaline Casts 0-2 /LPF (0-2) Urine Creatinine 237.34 mg/dL Urine Microalbumin 11.0 mg/L Urine Microalbumin/Creatinine Ratio 4.6 ug/mg cr (<30) Coding Level of Care Code Est Pt Level 4 (75963) Complex EM visit Add On G2211 Diagnoses MICHAEL (generalized anxiety disorder) F41.1 Mild episode of recurrent major depressive disorder F33.0 Major depression episode severity: mild Abdominal bloating R14.0 Cyst of left ovary N83.202 Laterality: left Chronic fatigue R53.82 Fatigue type: chronic, unspecified Mild anemia D64.9 Constipation K59.00 Attention and concentration deficit R41.840 Family history of Crohn's disease Z83.79 Assessment & Plan Assessment & Plan (1) MICHAEL (generalized anxiety disorder): Code(s): F41.1 - Generalized anxiety disorder Category: Medical (2) MDD (major depressive disorder), recurrent episode: Code(s): F33.9 - Major depressive disorder, recurrent, unspecified Category: Medical Qualifiers: Major depression episode severity: mild Qualified Code(s): F33.0 - Major depressive disorder, recurrent, mild (3) Abdominal bloating: Code(s): R14.0 - Abdominal distension (gaseous) Category: Medical (4) Ovarian cyst: Onset Date: ~05/11/25 Comment: 04/2025 US: L There is a 1.6 x 0.9 x 1.4 cm paraovarian cyst. Code(s): N83.209 - Unspecified ovarian cyst, unspecified side Category: Medical Qualifiers: Laterality: left Qualified Code(s): N83.202 - Unspecified ovarian cyst, left side (5) Fatigue: Code(s): R53.83 - Other fatigue Category: Medical Qualifiers: Fatigue type: chronic, unspecified Qualified Code(s): R53.82 - Chronic fatigue, unspecified (6) Mild anemia: Code(s): D64.9 - Anemia, unspecified Category: Medical (7) Constipation: Code(s): K59.00 - Constipation, unspecified Category: Medical (8) Attention and concentration deficit: Code(s): R41.840 - Attention and concentration deficit Category: Medical (9) Family history of Crohn's disease: Comment: Mom Code(s): Z83.79 - Family history of other diseases of the digestive system Category: Medical Plan . Medications: New wheat dextrin (Benefiber (wheat dextrin)) 1 g PO DAILY 30 tabs 0RF polyethylene glycol 3350 (Miralax) 17 grams PO DAILY 119 grams 0RF bupropion HCl XL (Wellbutrin XL) 150 mg PO QAM 90 tabs 0RF Refilled escitalopram oxalate (Lexapro) 10 mg PO DAILY 90 tabs 0RF
[2025-06-03 15:01] VITALS: BP 122/67; PULSE 59; RESP 12; TEMP 36.4; O2SAT 97; BMI 23.1
--- OUTSIDE RECORDS SUMMARY | 2025-06-03 15:02 | XMS_ITS | Clinical Summary ---
Author Organization [facility] Address [address] [place] [id number] Care Team Providers Care Refueling Rampman Name Role Phone Pcp, No Primary Care [...] this topic Insurance [employer] Care Teams Refueling Rampman Relationship Specialty Start Date End Date Pcp, No PCP - General General Medicine 12/17/22
== END 2025-06-03 15:34 | disposition home or self-care (01) ==
LOC: HO.HMCFM 14:55
PROVIDERS: PCP Nurse Practitioner Family; Visit Provider Nurse Practitioner Family
DX: F41.1 Generalized anxiety disorder (principal); F33.0 Major depressive disorder, recurrent, mild; R14.0 Abdominal distension (gaseous); N83.202 Unspecified ovarian cyst, left side; R53.82 Chronic fatigue, unspecified; D64.9 Anemia, unspecified; K59.00 Constipation, unspecified; R41.840 Attention and concentration deficit; Z83.79 Family history of other diseases of the digestive system

== ENCOUNTER 2025-08-05 15:06 | Outpatient (AMB) | payer OTHER, SELFPAY ==
--- NOTE | 2025-08-05 16:52 | MHC.PC.OV ---
Intake Visit Reasons: 8 weeks telehealth fu Wellbtrin start Allergies No Known Allergies Allergy (Verified 08/05/25 17:01) Medication List - Last Reconciled 08/05/25 by [facility] escitalopram oxalate (Lexapro) 10 mg PO DAILY lorazepam (Ativan) 0.5 mg PO DAILY PRN multivitamin with iron 1 tab PO DAILY polyethylene glycol 3350 (Miralax) 17 grams PO DAILY wheat dextrin (Benefiber (wheat dextrin)) 1 g PO DAILY Tobacco use date assessed: 06/03/25 Dental Screening Dental Screen Date: 06/03/25 HPI HPI Comments History of Present Illness Details 39 y/o F with MICHAEL, MDD, fhx chrons (mom), Constipation, Mild anemia 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 Depression: - Wellbutrin caused impaired multitasking, delayed processing, and communication. Stopped taking after 14 days - Noted neck jolts; symptoms resolved post-discontinuation. - Considering an increase in Lexapro for better symptom management. - Denies SI/HI Constipation: - Ongoing issue managed with fiber and dietary changes. - Current management reported as effective. Review of Systems - Neurological: Reports neck jolts; symptoms resolved after discontinuing Wellbutrin. - Digestive: Denies any current issues beyond well-managed constipation with fiber. - Psychological: Reports improved focus on one task at a time; delayed response time on Wellbutrin. Physical Exam Limited physical exam was conducted Awake alert NAD Speaking in full sentences Engaging, appropriate Skin pink warm and dry Mood and affect appropriate Assessment and Plan 1. Depression/MICHAEL - Discontinued Wellbutrin; increased Lexapro to 15 mg daily. - Monitor response, follow-up in 8-10 weeks. 2. Constipation - Continue fiber and dietary changes. - Current management effective. RTO 8-10 week via telehealth, OV request sent. Patient was given time to ask questions. All questions were answered to their satisfaction. Telehealth Attestation This visit was conducted via telehealth, and documentation accurately reflects the visit's content. The patient has been explained that this is an interactive (audio/video) telehealth encounter and what that consists of. The patient understands and wishes to proceed. [employer] platform was used. Total time spent caring for the patient today was 15 minutes. This includes time spent before the visit reviewing the chart, time spent during the visit, and time spent after the visit on documentation, reviewing laboratory results, diagnostic imaging, medications, performing a medically necessary evaluation, counseling on diagnoses, care coordination, ordering appropriate tests, ordering appropriate medications, review of tests performed by other providers, reporting test results with the patient, communication with other healthcare providers. [facility] Medical History (Updated 06/03/25 @ 15:39 by Corie Mackay, [facility]) Anxiety and depression Scoliosis Surgical History (Updated 04/02/25 @ 13:11 by Connie Ramos MA) No pertinent past surgical history Family History (Updated 04/02/25 @ 13:15 by Connie Ramos MA) Paternal Grandmother COPD (chronic obstructive pulmonary disease) Father HTN (hypertension) High cholesterol Mother Thyroid disorder Mental health disorder Paternal Grandfather Cardiovascular disease Maternal Grandmother Lung cancer Maternal Grandfather Cancer Brother Mental health disorder Social History (Updated 04/02/25 @ 13:11 by Connie Ramos MA) Household Members: Spouse and Children Both parents involved: No Caregiver staying overnight: No Housing: House Are you a primary resident care technician to a significant other at home: Yes Do you presently have visiting nurse or other home services: No 75 years or older and lives alone: No Alcohol intake: current Alcohol intake frequency: a few times a month Patient Tobacco Use Status: Never used Tobacco e-Cigarette/Vaping Use: Never Used Second Hand Smoke Exposure: No Current occupational status: employed 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 Filipe Wray, Stephanie Saavedra, Manas Coley and colleagues, with an educational karl from [employer]. Physical exam (Primary Care) Tobacco/Smoking Status: Tobacco use Status Tobacco use date assessed 06/03/25 06/03/25 15:03 Patient Tobacco Use Status Never used Tobacco 06/03/25 15:03 e-Cigarette/Vaping Use Never Used 06/03/25 15:03 Thrive Assessment: Date of Thrive Assessment Date Thrive assessed 03/26/25 06/03/25 15:03 Telehealth Telehealth Telehealth Platform: [employer] Location of provider rendering services: practice address Location of patient: address on file Patient Identification confirmed using: Name, : Yes Telehealth method: voice only Patient verbally consented to treatment: Yes Patient verbally consented to billing insurance company: Yes Patient informed of any privacy concerns related to visit: Yes Minutes spent on Phone/Video with Pt.: 8 Coding Level of Care Code Tele Est Pt Level 2 (90372) Complex EM visit Add On G2211 Diagnoses MICHAEL (generalized anxiety disorder) F41.1 Mild episode of recurrent major depressive disorder F33.0 Major depression episode severity: mild Constipation K59.00 Attention and concentration deficit R41.840 Assessment & Plan Assessment & Plan (1) MICHAEL (generalized anxiety disorder): Code(s): F41.1 - Generalized anxiety disorder Category: Medical (2) MDD (major depressive disorder), recurrent episode: Code(s): F33.9 - Major depressive disorder, recurrent, unspecified Category: Medical Qualifiers: Major depression episode severity: mild Qualified Code(s): F33.0 - Major depressive disorder, recurrent, mild (3) Constipation: Code(s): K59.00 - Constipation, unspecified Category: Medical (4) Attention and concentration deficit: Code(s): R41.840 - Attention and concentration deficit Category: Medical Plan . Medications: Changed From escitalopram oxalate (Lexapro) 10 mg PO DAILY 90 tabs 0RF To escitalopram oxalate (Lexapro) 15 mg (1.5 x 10 mg) PO DAILY 135 tabs 0RF Discontinued bupropion HCl XL (Wellbutrin XL) Discontinued Reason: Patient Completed Course 150 mg PO QAM 90 tabs 0RF
--- OUTSIDE RECORDS SUMMARY | 2025-08-05 18:44 | XMS_ITS | Clinical Summary ---
Author Organization [facility] Address [address] [place] [id number] Care Team Providers Care Roofer Applicator Name Role Phone Pcp, No Primary Care [...] 06/21/2019 06/21/2009, 11/29/1992, 07/29/1991, Additional history exists Influenza Vaccine 05/22/2025 09/17/2022, , 10/19/2020, Additional history exists COVID-19 Vaccine ( season) 2025 07/24/2021, 06/26/2021 Hepatitis B Vaccines Completed 01/19/2000, 10/06/1999, 08/11/1999 Pneumococcal Vaccine: Pediatric (0-5 Years) and At-Risk Patients (6 to 49 Years) Aged Out No longer eligible based on patient's age to complete this topic Insurance [employer] Care Teams Roofer Applicator Relationship Specialty Start Date End Date Pcp, No PCP - General General Medicine 12/17/22
== END 2025-08-05 17:05 | disposition home or self-care (01) ==
LOC: HO.HMCFM 15:06
PROVIDERS: PCP Nurse Practitioner Family; Visit Provider Nurse Practitioner Family
DX: F41.1 Generalized anxiety disorder (principal); F33.0 Major depressive disorder, recurrent, mild; K59.00 Constipation, unspecified; R41.840 Attention and concentration deficit